=== PATIENT | female | born 1985 | race Caucasian/White ===

== ENCOUNTER 2021-05-26 10:52 | Outpatient (CLI) | payer SELFPAY ==
[2021-05-26] VITALS (7 sets, daily range): BP systolic 103–114; BP diastolic 69–83; PULSE 71–85; RESP 18; TEMP 36.7; BMI 28.0
--- NOTE | 2021-05-26 11:19 | US_ITS ---
WS: [id number] ULTRASOUND SOFT TISSUES RIGHT lower quadrant. HISTORY: R/O APPY, PT IS 20 WEEKS COMPARISON: None available. TECHNIQUE: 2-D and color Doppler imaging is submitted. The appendix is not identified. There is no inflammatory collection in the RIGHT lower quadrant or fl uid. The RIGHT ovary is identified and slightly enlarged measuring 3.3 x 3.3 x 3.6 cm. Small hemorrha gic corpus luteum is present centrally. There is normal vascularity within the ovary. Arterial and ve nous flow was identified. No adjacent fluid. US/US appendix [id number] IMPRESSION: 1. No secondary evidence of appendicitis. The appendix is not identified. 2. Mildly heterogeneous appearance of the RIGHT ovary. Arterial and venous iman w is identified.
[2021-05-26] MEDS: hyDROXYzine 25 mg Capsule 50 MG PO (11:51)
[2021-05-26 12:02] LABS: Basophils % 0.4 %; Hemoglobin 11.7 g/dL (11.5-15.3); Lymphocytes # 1.7 10^3/uL (0.8-4.8); Lymphocytes % 15.1 %; Mean Corpuscular HGB Conc 33.4 g/dL (30.0-36.0); Mean Corpuscular Hemoglobin 30.2 pg (28.0-34.0); Mean Corpuscular Volume 90.4 fl (81-99); Mean Platelet Volume 10.5 fL (7.4-10.4); Monocytes # 0.6 10^3/uL (0.2-0.9); Monocytes % 5.7 %; Neutrophils # 8.82 10^3/uL (1.8-7.7); Neutrophils % 77.8 %; Nucleated Red Blood Cells % 0 %; Platelet Count 213 10^3/cmm (130-400); Red Blood Count 3.87 10^6/uL (4.1-5.3); Red Cell Distribution Width 12.4 % (12.1-15.1); White Blood Count 11.3 10^3/uL (4.0-10.0)
[2021-05-26 12:07] LABS: Bilirubin Urine Neg (Negative); Blood Urine Neg (Negative); Glucose Urine UA Norm (Normal); Ketones Urine Negative (Negative); Leukocyte Esterase Urine Negative (Negative); Nitrate Urine Negative (Negative); Protein Urine Neg (Negative); Specific Gravity, Urine 1.007 (1.005-1.030); Urine Appearance Clear (CLEAR); Urine Color Straw (Yellow); Urobilinogen Urine Norm (Negative); pH Urine 5 (5-7)
[2021-05-26 12:25] LABS: Alanine Aminotransferase 12 U/L (0-33); Albumin Level 3.7 g/dL (3.5-5.2); Alkaline Phosphatase 52 IU/L (35-105); Anion Gap 14.7 (5-19); Aspartate Amino Transferase 14 U/L (0-32); Blood Urea Nitrogen 6 mg/dL (6-20); Calcium 9.5 mg/dL (8.5-10.5); Carbon Dioxide 20 mmol/L (22-29); Chloride 101 mmol/L (98-107); Globulin 2.8 g/dL (1.3-4.6); Glomerular Filtration Rate 404.2 mL/min (90-130); Glucose 71 mg/dL (65-115); Osmolality Calculated 270 mOsm/kg (285-295); Potassium 3.7 mmol/L (3.5-5.1); Sodium 132 mmol/L (136-145); Total Bilirubin 0.3 mg/dL (0.15-1.2); Total Protein 6.5 g/dL (6.6-8.7)
== END 2021-05-26 12:50 | disposition home or self-care (01) ==
LOC: OPOB 11:03 → OBGYN 11:04
PROVIDERS: Visit Provider Obstetrics & Gynecology
DX: O26.899 Other specified pregnancy related conditions, unspecified trimester (principal); Z3A.00 Weeks of gestation of pregnancy not specified; R10.30 Lower abdominal pain, unspecified
CPT/HCPCS: 36415; 76705; 80053; 81001; 85025; 99211